=== PATIENT | female | born 1950 | race Two or more races ===

== ENCOUNTER → 2016-05-18 | Outpatient (CLI) | payer OTHER, MEDICAID ==
[~2016-05-18] MED LIST: ALBU18 IN; ESCI10TA53 PO; GABA-339 PO; HYDR-3682 PO; LACT10SO PO; OMEP20TA44 PO; POTA-167 PO; PROP60CA8 PO; SPIR25TA88 PO; TIOTCAP IN; TRAM50TA2 PO; URSO300C7 PO
[2016-05-18 14:30] LABS: Basophils # (auto) 0 uL; Basophils % (auto) 0.5 % (0.0-2.0); Eosinophils # (auto) 0 uL; Hematocrit 34.5 % (36.0-46.0); Lymphocytes % (auto) 22.2 % (10.0-50.0); Mean Corpuscular Hgb Conc. 31.8 g/dL (32.0-36.0); Mean Platelet Volume 9.2 fL (7.4-10.4); Monocytes # (auto) 0.5 uL; Monocytes % (auto) 11.6 % (0.0-12.0); Neutrophils % (auto) 65.7 % (37.0-80.0); Platelet Count (auto) 127 10^3/uL (140-450); Red Cell Distribution Width 18.4 % (11.6-16.0); White Blood Cell 4.6 10^3/uL (4.4-10.8)
[2016-05-18 14:46] LABS: Albumin 2.7 g/dL (3.4-5.0); BUN/Creatinine Ratio 13.3; Bilirubin, Total 0.9 mg/dL (0.2-1.0); Calcium 8.5 mg/dL (8.5-10.1); Potassium 4.2 mmol/L (3.5-5.1); Total Protein 5.7 g/dL (6.4-8.2)
== END | disposition home or self-care (01) ==
LOC: LAB 13:39
DX: M06.9 Rheumatoid arthritis, unspecified (principal); M25.50 Pain in unspecified joint; D64.9 Anemia, unspecified; I10 Essential (primary) hypertension; Z79.899 Other long term (current) drug therapy
CPT/HCPCS: 36415; 80053; 85025; 85049; 85652; 86141

== ENCOUNTER → 2016-07-19 | Outpatient (CLI) | payer OTHER, MEDICAID ==
[2016-07-19 15:46] LABS: Basophils # (auto) 0 uL; Basophils % (auto) 0.2 % (0.0-2.0); Eosinophils # (auto) 0 uL; Hematocrit 33.5 % (36.0-46.0); Hemoglobin 10.8 g/dL (12.2-16.2); Lymphocytes # (auto) 0.8 uL; Lymphocytes % (auto) 22.5 % (10.0-50.0); Mean Corpuscular Hemoglobin 27.2 pg (28.0-32.0); Mean Corpuscular Hgb Conc. 32.2 g/dL (32.0-36.0); Mean Corpuscular Volume 84.6 fL (80.0-100.0); Mean Platelet Volume 8.8 fL (7.4-10.4); Monocytes # (auto) 0.4 uL; Neutrophils # (auto) 2.5 uL; Neutrophils % (auto) 66.3 % (37.0-80.0); Platelet Count (auto) 137 10^3/uL (140-450); White Blood Cell 3.7 10^3/uL (4.4-10.8)
[2016-07-19 15:55] LABS: Albumin 2.8 g/dL (3.4-5.0); BUN/Creatinine Ratio 12.7; Bilirubin, Total 0.8 mg/dL (0.2-1.0); Calcium 8.3 mg/dL (8.5-10.1); Total Protein 6.1 g/dL (6.4-8.2)
[2016-07-19 16:15] LABS: INR 1.18 (0.9-1.15); Prothrombin Time 12.7 sec (9.37-12.3)
== END | disposition home or self-care (01) ==
LOC: LAB 15:08
PROVIDERS: ATTEND Internal Medicine Gastroenterology
DX: K74.69 Other cirrhosis of liver (principal)
CPT/HCPCS: 36415; 80053; 82105; 85025; 85610

== ENCOUNTER → 2016-08-08 | Outpatient (CLI) | payer OTHER, MEDICAID | END | disposition home or self-care (01) | LOC: LAB 09:53 | PROVIDERS: ATTEND Internal Medicine Gastroenterology | DX: K74.60 Unspecified cirrhosis of liver (principal) | CPT/HCPCS: 36415; 82565; 84520 ==

== ENCOUNTER 2016-09-22 15:38 | Inpatient (IN) | payer OTHER, MEDICAID ==
[~2016-09-22] VITALS: Ht 149.9 cm; Wt 70.5 kg
[~2016-09-22 15:38] MED LIST changes: -LACT10SO PO; +LACT10SO3 PO; -URSO300C7 PO; +URSO300C9 PO
[2016-09-22] MEDS ORDERED: LACTULOSE 20Gm/30ML SOLN PO ONE (17:30)
[2016-09-22 17:42] LABS: Basophils # (auto) 0 uL; Basophils % (auto) 0.2 % (0.0-2.0); DEFINITIVE VIEW TRANSMISSION; Eosinophils # (auto) 0 uL; Hematocrit 35.1 % (36.0-46.0); Hemoglobin 11.3 g/dL (12.2-16.2); Lymphocytes # (auto) 0.9 uL; Lymphocytes % (auto) 24.1 % (10.0-50.0); Mean Corpuscular Hemoglobin 26.9 pg (28.0-32.0); Mean Corpuscular Hgb Conc. 32.2 g/dL (32.0-36.0); Mean Corpuscular Volume 83.7 fL (80.0-100.0); Mean Platelet Volume 9.1 fL (7.4-10.4); Monocytes # (auto) 0.6 uL; Monocytes % (auto) 15.5 % (0.0-12.0); Neutrophils # (auto) 2.3 uL; Neutrophils % (auto) 60.2 % (37.0-80.0); Platelet Count (auto) 145 10^3/uL (140-450); White Blood Cell 3.8 10^3/uL (4.4-10.8)
[2016-09-22 17:52] LABS: Red Cell Distribution Width 20.2 % (11.6-16.0)
[2016-09-22 18:06] LABS: Alkaline Phosphatase 134 U/L (45-117); Anion Gap 9 (5-15); Aspartate Aminotransferase 26 U/L (15-37); BUN/Creatinine Ratio 17.3; Bilirubin, Total 0.8 mg/dL (0.2-1.0); Blood Urea Nitrogen 14 mg/dL (7-18); Calcium 8.5 mg/dL (8.5-10.1); Carbon Dioxide 24 mmol/L (21-32); Chloride 108 mmol/L (98-107); GFR African American 91 mL/min; GFR Non-African American 75 mL/min; Glucose 87 mg/dL (74-106); Magnesium 2.4 mg/dL (1.6-2.6); Potassium 3.6 mmol/L (3.5-5.1); Sodium 141 mmol/L (136-145); Total Protein 6.2 g/dL (6.4-8.2)
[2016-09-22 18:13] LABS: Anisocytosis Slight; Hypochromia Slight; Ovalocytes FEW; Platelet Estimate Adequate
[2016-09-22] MEDS ORDERED: ASPirin 81 mg TAB PO ONE (19:00)
[2016-09-22] MEDS ORDERED: ACETAMINOPHEN 500 MG TAB PO PRN (20:30)
[2016-09-22] MEDS ORDERED: TEMAZEPAM 15 MG CAP PO PRN (20:30)
[2016-09-22] MEDS ORDERED: NITROGLYCERIN 0.4 MG SL TAB SL PRN (20:30)
[2016-09-22] MEDS ORDERED: LORazepam 0.5 MG TAB PO PRN (20:30)
[2016-09-22] MEDS ORDERED: PROMETHAZINE HCL 25 MG/ML 1ML IV PRN (20:30)
[2016-09-22] MEDS ORDERED: MORPHINE SULF INJ 2 MG/ML SYRINGE 1ML IV PRN ×2 (20:30)
[2016-09-22] MEDS ORDERED: cefTRIAXone 1GM/50ML D5W 50 ML IV ONE (21:00)
[2016-09-22] MEDS: SODIUM CHLORIDE 0.9% 1,000 ML IV SCH (21:00)
[2016-09-22 21:17] LABS: Amylase 69 U/L (25-115)
[2016-09-22 23:00] VITALS: BP 110/52
[2016-09-23] MEDS: LACTULOSE 20Gm/30ML SOLN PO SCH ×5 (00:25→21:54)
[2016-09-23] MEDS: metroNIDAZOLE 500MG/100ML 100 ML IV SCH ×3 (00:25→11:40)
[2016-09-23 05:00] VITALS: BP 119/55
[2016-09-23 06:19] LABS: Basophils # (auto) 0 uL; Basophils % (auto) 0.1 % (0.0-2.0); DEFINITIVE VIEW TRANSMISSION; Eosinophils # (auto) 0 uL; Hematocrit 33.1 % (36.0-46.0); Hemoglobin 10.9 g/dL (12.2-16.2); Lymphocytes # (auto) 1.1 uL; Lymphocytes % (auto) 29.1 % (10.0-50.0); Mean Corpuscular Hemoglobin 27.5 pg (28.0-32.0); Mean Corpuscular Volume 83.2 fL (80.0-100.0); Monocytes # (auto) 0.6 uL; Monocytes % (auto) 14.5 % (0.0-12.0); Neutrophils # (auto) 2.2 uL; Neutrophils % (auto) 56.3 % (37.0-80.0); Platelet Count (auto) 135 10^3/uL (140-450); Red Cell Distribution Width 19.9 % (11.6-16.0); White Blood Cell 3.8 10^3/uL (4.4-10.8)
[2016-09-23 06:47] LABS: Albumin 2.7 g/dL (3.4-5.0); BUN/Creatinine Ratio 20.8; Bilirubin, Total 0.7 mg/dL (0.2-1.0); Calcium 8.5 mg/dL (8.5-10.1); Potassium 3.2 mmol/L (3.5-5.1); Total Protein 5.6 g/dL (6.4-8.2)
[2016-09-23 09:00] VITALS: BP 110/48
[2016-09-23] MEDS ORDERED: cefTRIAXone 1GM/50ML D5W 50 ML IV SCH (09:00)
[2016-09-23] MEDS: SODIUM CHLORIDE 0.9% 1,000 ML IV SCH (09:38)
[2016-09-23] MEDS ORDERED: ENOXAPARIN SOD 40 MG/0.4 ML SYRINGE SC SCH (10:00)
[2016-09-23] MEDS: PANTOPRAZOLE 40 MG TAB PO SCH (11:40)
[2016-09-23 13:00] VITALS: BP_SYST 131; BP_SYST 149; BP_DIAS 68; BP_DIAS 77
[2016-09-23] MEDS ORDERED: SPIRONOLACTONE 25 MG TAB PO ONE (16:15)
[2016-09-23 17:00] VITALS: BP 112/52
[2016-09-23] MEDS: PROPRANOLOL HCL 20 MG TAB PO SCH (21:54)
[2016-09-23 22:00] VITALS: BP 116/57
[2016-09-23] MEDS: HYDROcodone-ACET 5/325MG TAB PO PRN (23:57)
[2016-09-24] MEDS: PROPRANOLOL HCL 20 MG TAB PO SCH (05:44)
[2016-09-24] MEDS: LACTULOSE 20Gm/30ML SOLN PO SCH (05:45)
[2016-09-24 05:52] LABS: Basophils # (auto) 0 uL; Basophils % (auto) 0.2 % (0.0-2.0); DEFINITIVE VIEW TRANSMISSION; Eosinophils # (auto) 0 uL; Hematocrit 31.4 % (36.0-46.0); Hemoglobin 10.4 g/dL (12.2-16.2); Lymphocytes % (auto) 29.2 % (10.0-50.0); Mean Corpuscular Hemoglobin 27.4 pg (28.0-32.0); Mean Corpuscular Volume 82.9 fL (80.0-100.0); Mean Platelet Volume 8.9 fL (7.4-10.4); Monocytes # (auto) 0.5 uL; Monocytes % (auto) 15.5 % (0.0-12.0); Neutrophils # (auto) 1.9 uL; Neutrophils % (auto) 55.1 % (37.0-80.0); Platelet Count (auto) 123 10^3/uL (140-450); Red Cell Distribution Width 19.9 % (11.6-16.0); White Blood Cell 3.5 10^3/uL (4.4-10.8)
[2016-09-24 06:10] LABS: Partial Thromboplastin Time 25.7 sec (22.64-33.71)
[2016-09-24 06:37] LABS: INR 1.2 (0.9-1.15); Prothrombin Time 13.1 sec (9.37-12.3)
[2016-09-24 09:26] LABS: Anisocytosis Slight; Platelet Estimate Decreased
[2016-09-24] MEDS: PANTOPRAZOLE 40 MG TAB PO SCH (09:48)
[2016-09-24] MEDS: HYDROcodone-ACET 5/325MG TAB PO PRN (09:54)
[2016-09-24] MEDS ORDERED: SPIRONOLACTONE 25 MG TAB PO SCH (10:00)
[2016-09-24] MEDS ORDERED: POTASSIUM CHL 20 Meq TABLET PO ONE (11:00)
[2016-09-24 11:47] VITALS: BP 116/55
== END 2016-09-24 13:45 | disposition home or self-care (01) | DRG 441 ==
LOC: ER 15:41 → TELE-WESTW 21:37
PROVIDERS: ADMIT Internal Medicine; ATTEND Internal Medicine
DX: K72.90 Hepatic failure, unspecified without coma (principal); G93.41 Metabolic encephalopathy; K59.39 Other megacolon; D63.8 Anemia in other chronic diseases classified elsewhere; K74.60 Unspecified cirrhosis of liver; F32.9 Major depressive disorder, single episode, unspecified; K21.9 Gastro-esophageal reflux disease without esophagitis; K44.9 Diaphragmatic hernia without obstruction or gangrene; J44.9 Chronic obstructive pulmonary disease, unspecified; M34.9 Systemic sclerosis, unspecified; Z80.0 Family history of malignant neoplasm of digestive organs; Z83.3 Family history of diabetes mellitus; D69.6 Thrombocytopenia, unspecified; Z90.89 Acquired absence of other organs; D72.819 Decreased white blood cell count, unspecified; K59.00 Constipation, unspecified
CPT/HCPCS: 36415; 70450; 71020; 74176; 80053; 80061; 80320; 82140; 82150; 83690; 83735; 84484; 85025; 85610; 85652; 85730; 87493; 93005; 96365; 96366; J0696; J3490

== ENCOUNTER → 2017-07-20 | Outpatient (CLI) | payer OTHER, MEDICAID ==
[2017-07-20 16:03] LABS: Basophils # (auto) 0 uL; Basophils % (auto) 0.2 % (0.0-2.0); Eosinophils # (auto) 0 uL; Hematocrit 39.7 % (36.0-46.0); Hemoglobin 12.5 g/dL (12.2-16.2); Lymphocytes # (auto) 0.9 uL; Lymphocytes % (auto) 15.9 % (10.0-50.0); Mean Corpuscular Hgb Conc. 31.6 g/dL (32.0-36.0); Mean Corpuscular Volume 85.5 fL (80.0-100.0); Monocytes # (auto) 0.8 uL; Monocytes % (auto) 13.6 % (0.0-12.0); Neutrophils # (auto) 4.2 uL; Neutrophils % (auto) 70.3 % (37.0-80.0); Nucleated Red Blood Cells % 0.1 %; Platelet Count (auto) 111 10^3/uL (140-450); Red Blood Cells 4.64 10^6/uL (4.0-5.20); Red Cell Distribution Width 19.1 % (11.8-14.3)
[2017-07-20 16:53] LABS: Albumin 2.9 g/dL (3.4-5.0); BUN/Creatinine Ratio 17.8; Bilirubin, Total 1.2 mg/dL (0.2-1.0); Calcium 8.3 mg/dL (8.5-10.1); Potassium 3.7 mmol/L (3.5-5.1); Total Protein 6.4 g/dL (6.4-8.2)
== END | disposition home or self-care (01) ==
LOC: LAB 15:13
PROVIDERS: ATTEND Internal Medicine
DX: R10.9 Unspecified abdominal pain (principal); J44.9 Chronic obstructive pulmonary disease, unspecified; I10 Essential (primary) hypertension
CPT/HCPCS: 36415; 80053; 82150; 83690; 85025

== ENCOUNTER → 2017-08-24 | Outpatient (CLI) | payer OTHER, MEDICAID | END | disposition home or self-care (01) | LOC: XY 08:32 | PROVIDERS: ATTEND Internal Medicine | DX: R10.11 Right upper quadrant pain (principal) | CPT/HCPCS: 78226 ==

== ENCOUNTER → 2017-12-21 | Outpatient (CLI) | payer OTHER, MEDICAID ==
[~2017-12-21] MED LIST changes: +PROP60CA34 PO; -PROP60CA8 PO
[2017-12-21 10:16] LABS: Basophils # (auto) 0 uL; Basophils % (auto) 0.1 % (0.0-2.0); Eosinophils # (auto) 0 uL; Hematocrit 41.2 % (36.0-46.0); Hemoglobin 13.1 g/dL (12.2-16.2); Lymphocytes # (auto) 1.4 uL; Lymphocytes % (auto) 32.9 % (10.0-50.0); Mean Corpuscular Hemoglobin 28.8 pg (28.0-32.0); Mean Corpuscular Hgb Conc. 31.7 g/dL (32.0-36.0); Mean Corpuscular Volume 90.8 fL (80.0-100.0); Monocytes # (auto) 0.4 uL; Monocytes % (auto) 10.5 % (0.0-12.0); Neutrophils # (auto) 2.4 uL; Neutrophils % (auto) 56.5 % (37.0-80.0); Platelet Count (auto) 116 10^3/uL (140-450); Red Blood Cells 4.53 10^6/uL (4.0-5.20); Red Cell Distribution Width 17.8 % (11.8-14.3); White Blood Cell 4.3 10^3/uL (4.4-10.8)
[2017-12-21 10:21] LABS: Urine Bacteria MOD /hpf (None Seen); Urine Blood Negative /uL (Negative); Urine WBC 10 /hpf (0 - 5)
[2017-12-21 10:31] LABS: INR 1.17 (0.9-1.15); Prothrombin Time 12.4 sec (9.27-12.13)
[2017-12-21 10:56] LABS: Albumin 3.1 g/dL (3.4-5.0); BUN/Creatinine Ratio 11.3; Bilirubin, Total 1.1 mg/dL (0.2-1.0); Calcium 8.8 mg/dL (8.5-10.1); Total Protein 6.5 g/dL (6.4-8.2)
== END | disposition home or self-care (01) ==
LOC: LAB 09:32
PROVIDERS: ATTEND Internal Medicine
DX: M34.9 Systemic sclerosis, unspecified (principal); K74.3 Primary biliary cirrhosis; I10 Essential (primary) hypertension; J44.9 Chronic obstructive pulmonary disease, unspecified; Z87.891 Personal history of nicotine dependence
CPT/HCPCS: 36415; 80053; 80061; 81001; 82105; 82140; 84439; 84443; 85025; 85610

== ENCOUNTER → 2017-12-26 | Outpatient (CLI) | payer OTHER, MEDICAID ==
[2017-12-26 16:37] LABS: INR 1.2 (0.9-1.15); Prothrombin Time 12.7 sec (9.27-12.13)
== END | disposition home or self-care (01) ==
LOC: LAB 15:23
PROVIDERS: ATTEND Internal Medicine Gastroenterology
DX: B18.2 Chronic viral hepatitis C (principal); J44.9 Chronic obstructive pulmonary disease, unspecified; I10 Essential (primary) hypertension; Z87.891 Personal history of nicotine dependence
CPT/HCPCS: 36415; 82105; 85610

== ENCOUNTER → 2018-05-29 | Outpatient (CLI) | payer OTHER, MEDICAID ==
[~2018-05-29] MED LIST changes: +ASPI81TA27 PO; +FLUT250M2 INH; +FURO20TA3 PO; +PANT40TA2 PO; +RIFA550T PO; +SUCR1TAB PO; +TRAZ50TA2 PO
[2018-05-29 11:29] LABS: Albumin 3.1 g/dL (3.4-5.0); BUN/Creatinine Ratio 14.8; Calcium 8.7 mg/dL (8.5-10.1); Potassium 3.6 mmol/L (3.5-5.1)
[2018-05-29 11:31] LABS: Bilirubin, Total 1.2 mg/dL (0.2-1.0); Total Protein 6.2 g/dL (6.4-8.2)
== END | disposition home or self-care (01) ==
LOC: LAB 10:46
PROVIDERS: ATTEND Internal Medicine
DX: E03.9 Hypothyroidism, unspecified (principal); K74.3 Primary biliary cirrhosis
CPT/HCPCS: 36415; 80053; 82140; 84439; 84443